=== PATIENT | male | born 1965 | race Caucasian/White ===

== ENCOUNTER 2017-07-14 12:18 | Observation (INO) | payer OTHER ==
[~2017-07-14] VITALS: Ht 185.4 cm; Wt 92.8 kg
[2017-07-14] VITALS (7 sets, daily range): BP systolic 114–143; BP diastolic 71–90; PULSE 50–66; RESP 13–18; O2SAT 96–98
[2017-07-14 13:06] LABS: BASOPHILS % (AUTO) 0.4 % (0-3); EOSINOPHILS % (AUTO) 0.9 % (0-5); MONOCYTES % (AUTO) 6.1 % (4-12); Mean Corpuscular Hemoglobin 29.3 pg (27.0-35.0); Mean Corpuscular Volume 81.8 fL (81-100); NEUTROPHILS % (AUTO) 48.5 % (40-74); Platelet Count 214 bil/L (150-400)
--- NOTE | 2017-07-14 13:27 | DRSVH ---
PROCEDURE: X-RAY CHEST ONE VIEW, PORTABLE ([id number]) INDICATIONS: chest pain TECHNIQUE: One view of the chest was acquired. COMPARISON: None. FINDINGS: Surgical changes and devices: None. Lungs and pleura: No pleural effusions or pneumothorax. Lungs are clear. Mediastinum: Mediastinal contours appear normal. Heart size is normal. Bones and chest wall: No suspicious bony lesions. Overlying soft tissues appear unremarkable. IMPRESSION: Negative chest. No acute cardiopulmonary process is evident. Dictated by: Thad Xiong M.D. on 07/14/2017 at 12:25 Approved by: Thad Xiong M.D. on 07/14/2017 at 12:26
[2017-07-14 13:32] LABS: TROPONIN T < 0.010 ug/L (0.0-0.011)
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
[2017-07-14 13:40] LABS: Magnesium 1.7 mg/dL (1.6-2.6)
[2017-07-14] MEDS ORDERED: Ondansetron 2 mg/mL 2 mL Inj IVPUSH ONE (13:50)
[2017-07-14] MEDS ORDERED: Ondansetron 2 mg/mL 2 mL Inj IVPUSH PRN (15:10)
--- NOTE | 2017-07-14 15:38 | DRSVH ---
PROCEDURE: CT ANG CHEST/ABD W/WO CONTRAST ([id number]) INDICATIONS: chest pain TECHNIQUE: Precontrast 5 mm thick sections acquired from the lung apices to the iliac crests. After the adminis tration of intravenous contrast, 3 mm thick sections again acquired from the lung apices to the iliac crests. 3-dimensional maximum intensity projection (MIP) oblique sagittal and coronal reformats wer e then acquired, and/or 3-dimensional volume rendering reformats. For radiation dose reduction, the following was used: automated exposure control. COMPARISON: None. FINDINGS: Image quality: Diagnostic. AORTA: The abdominal and thoracic aorta are normal in course and caliber without evidence of dissecti on, aneurysm, or occlusion. Mild atherosclerotic irregularity is noted involving the mid to lower ab dominal aorta. There is no intramural hematoma. No hematoma is evident within the mediastinum or re troperitoneum. The major arch vessels arising from the thoracic aorta are widely patent and otherwis e unremarkable. The major branch vessels arising from the upper abdominal aorta also are widely tirado nt and unremarkable. The imaged portions of the common iliac arteries are patent and within normal l imits. CHEST: Lungs and pleura: The lungs are well aerated with the exception of mild scarring versus atelectasis w ithin the posterior bilateral costophrenic angles. There is no focal consolidation, effusion, or pne umothorax. No lung masses or definite pulmonary nodules are present. Mediastinum: The heart is normal in size without a pericardial effusion. There is no mediastinal mas s or lymphadenopathy. No hilar adenopathy is evident. Mild prominence of the wall of the mid to dis branden esophagus is present. There is an associated very small hiatal hernia. The main pulmonary arter ial trunk is not enlarged. No large area emboli are evident. Bones and chest wall: No axillary adenopathy by size criteria. Thyroid gland is not enlarged. No s uspicious bony lesions. No vertebral body compression fractures. Age-appropriate degenerative montague es of the thoracic spine are present. ABDOMEN: Solid organs: The liver is normal in size. There is a small area of low attenuation involving the me dial segment of the left hepatic lobe, measuring approximately 7 mm in diameter (image 93, series 5). There may be additional subtle areas of low attenuation within the lateral segment of the left hepa tic lobe. Otherwise, the liver is unremarkable. The spleen is within normal limits. The pancreas i s also within normal limits. The adrenals and kidneys are unremarkable. There is no hydronephrosis. The proximal ureters are within normal limits. Peritoneum and bowel: There is a small hiatal hernia. Otherwise, the stomach, duodenum and remainder of the small bowel loops are nondilated. Slight prominence of the wall of multiple jejunal small amanuel wel loops is present without dilatation of the lumen of the bowel. Moderate residual stool is presen t within the imaged portions of the colon. No free fluid, loculated fluid collection or free air is identified. There is fatty infiltration involving the wall of the terminal ileum. Nodes and vessels: No retroperitoneal or mesenteric adenopathy by size criteria. Inferior vena cava is normal in morphology. Bones: No suspicious bony lesions. No vertebral body compression fractures. Age-appropriate degene rative changes of the lumbar spine are present. IMPRESSION: 1. Mild atherosclerosis of the abdominal aorta. There is no evidence of aneurysm, dissection, or oc clusion involving the thoracic or abdominal aorta. 2. Mild prominence of the wall of the mid to distal esophagus may represent mild reflux esophagitis given the small hiatal hernia. Please correlate clinically. 3. Mild prominence of the wall of multiple small bowel loops probably is exaggerated by incomplete d istention. However, given fatty infiltration of the wall of the terminal ileum, the possibility of a chronic inflammatory process such as Crohn's disease is difficult to exclude and clinical correlatio n is recommended. There is no bowel obstruction. Dictated by: Thad Xiong M.D. on 07/14/2017 at 14:24 Approved by: Thad Xiong M.D. on 07/14/2017 at 14:37
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
[2017-07-14] MEDS ORDERED: Pantoprazole 40 mg ER24 Tablet PO ONE (16:50)
[2017-07-14 17:54] LABS: TROPONIN T 0.01 ug/L (0.0-0.011)
--- NOTE | 2017-07-14 18:50 | DRSVH ---
PROCEDURE: US VEINOUS LEG DUPLEX UNILATERAL, LEFT INDICATIONS: left lower calf tenderness TECHNIQUE: Real-time imaging, as well as color and pulse Doppler interrogation, were performed of the lower extr emity deep veins from the inguinal ligament to the popliteal fossa. COMPARISON: None. FINDINGS: The deep veins are normally compressible, and free of intraluminal thrombus. Color and pu lse Doppler demonstrate normal phasic intraluminal flow. There is normal augmentation response to di stal compression maneuver. IMPRESSION: No deep vein thrombosis of the left lower extremity. Dictated by: Radha Young M.D. on 07/14/2017 at 18:48 Approved by: Radha Young M.D. on 07/14/2017 at 18:48
--- NOTE | 2017-07-14 19:18 | DRSVH ---
PROCEDURE: CT BRAIN WITHOUT CONTRAST ([id number]) INDICATIONS: lt arm drop TECHNIQUE: Noncontrast 4.5 mm thick angled axial sections acquired from the foramen magnum to the vertex, with c oronal reformats. COMPARISON: None. FINDINGS: Image quality: Excellent. CSF spaces: Basal cisterns are patent. No extra-axial fluid collections. Ventricles are normal in size and shape. Brain: No midline shift. No intracranial masses or hemorrhage. Dawson-white matter interface is norm al. Skull and face: Calvarium and visualized facial bones are intact, without suspicious lesions. Sinuses: Visualized sinuses and mastoids are clear. IMPRESSION: 1. No acute intracranial findings. Dictated by: Radha Young M.D. on 07/14/2017 at 19:11 Approved by: Radha Young M.D. on 07/14/2017 at 19:16
[2017-07-15 00:42] VITALS: BP 103/66; PULSE 72; RESP 18; O2SAT 98
[2017-07-15 05:26] VITALS: BP 107/68; PULSE 65; RESP 18; O2SAT 98
[2017-07-15] MEDS ORDERED: Pantoprazole 40 mg ER24 Tablet PO SCH ×2 (07:30→08:30)
[2017-07-15 09:36] VITALS: PULSE 60
[2017-07-15] MEDS ORDERED: PANT40TA3 PO (10:12)
[2017-07-15] MEDS ORDERED: ASPI-973 PO (10:12)
[2017-07-15 10:17] VITALS: BP 107/70; PULSE 58; RESP 16; O2SAT 94
--- NOTE | 2017-07-15 14:49 | DRSVH ---
[facility] [address] [place] [address] Echocardiogram Report Name: KRISH GUERRA Study Date: 07/15/2017 Height: 73 in Hospital Exam Location: [facility] Weight: 205 lb Gender: Male BSA: 2.2 m2 : 1965 Age: 52 yrs BP: 107/68 mmHg Reason For Study: Chest pain Ordering Physician: HOSPITALIST [facility] Performed By: Shirley Cat Referring Physician: Ilya Harry Interpretation Summary Normal sinus rhythm. HR is 55-65 bpm during exam. Normal LV size, wall thickness, wall motion and LV systolic function. EF is 50-55%. No significant valvular abnormalities. Normal chamber sizes. No prior study available for comparison. Procedure: A two-dimensional transthoracic echocardiogram with color flow and Doppler was performed. The study quality was technically adequate. There is no prior echocardiogram noted for this patient. The patient was in normal sinus rhythm during the exam. Left Ventricle: The left ventricle is normal in size, wall thickness, and systolic function without any focal wall motion abnormalities. The ejection fraction is estimated to be 50-55%. Assessment of diastolic parameters indicates normal left ventricular diastolic function and normal filling pressures. Right Ventricle: The right ventricle is normal in size, thickness and function. Atria: Both atria are normal in size. There is no Doppler evidence for an interatrial shunt. Mitral Valve: The mitral valve is normal in structure and function. There is no mitral regurgitation noted. Aortic Valve: The aortic valve is trileaflet. The aortic valve opens well. No aortic regurgitation is present. Tricuspid Valve: The tricuspid valve is normal in structure and function. There is a trace or physiologic amount of tricuspid regurgitation. The right ventricular systolic pressure is estimated at 26 mmHg assuming a right atrial pressure of 3 mm Hg. Pulmonic Valve: The pulmonic valve is not well seen, but is grossly normal. There is trace pulmonic regurgitation. Great Vessels: The aortic root is normal size. The ascending aorta is mildly enlarged. The pulmonary artery is not well visualized, but is probably normal size. The IVC is of normal diameter and collapses greater than 50% with a sniff. This suggests a low right atrial pressure of 3 mm Hg. Pericardium/ Pleura There is no pericardial effusion. There is no pleural effusion. MMode/2D Measurements & Calculations LVIDd: 5.4 cm LVIDs: 3.7 cm LA A2 area: 18.5 cm FS: 31.3 % LA A4 area: 20.1 cm EPSS: 0.62 cm LA length (vol): 5.6 cm IVSd: 1.0 cm LA vol: 56.4 ml LVPWd: 0.88 cm LA vol index: 25.9 ml/m IVC diam: 2.0 cm RA long axis: 5.0 cm LVOT diam: 2.3 cm RA area: 18.3 cm AoV Openin.1 cm RA vol: 56.8 ml Ao root diam: 3.6 cm RA : 26.1 ml/m2 asc Aorta Diam: 3.9 cm Ao Arch Diam (Prox Trans): 3.5 cm LV reeder. diameter/BSA (cm/m^2): 2.5 LV sys. diameter/BSA (cm/m^2): 1.7 RVD1 (basal): 4.0 cm RVD2 (mid): 2.9 cm TAPSE: 1.6 cm Doppler Measurements & Calculations Ao V2 max: 125.7 cm/sec MV E max daniel: 98.1 cm/sec Ao max P.3 mmHg MV A max daniel: 66.5 cm/sec Ao mean P.3 mmHg MV P1/2t: 69.7 msec LVOT Max Daniel: 83.3 cm/sec CONRAD(I,D): 3.0 cm sev ratio: 0.75 MV E/A: 1.5 TR max daniel: 238.1 cm/sec TR max P.7 mmHg PA V2 max: 67.8 cm/sec PA mean P.1 mmHg PA Accel Time: 0.14 sec MV dec time: 0.24 sec MV P1/2t max daniel: 98.2 cm/sec MVA(P1/2t): 3.2 cm2 Ao V2 mean: 84.2 cm/sec LV V1 max P.8 mmHg Ao V2 VTI: 27.4 cm LV V1 VTI: 20.5 cm CONRAD(V,D): 2.7 cm2 PA V2 mean: 49.3 cm/sec CONRAD indexed to BSA (cm^2/m^2): 1.4 Reading Physician:02:48 PM
[2017-07-15 15:00] VITALS: BP 132/80; PULSE 59; RESP 16; O2SAT 96
--- NOTE | 2017-07-15 15:42 | PCM.DIMED ---
Discharge Instructions Date of Service Jul 15, 2017 Dates of Hospitalization Jul 14, 2017 at 15:31 Discharge Diagnosis Discharge Diagnosis acute dx Chest pain, possible due to GI origin, erosive esophagitis, negative ischemic w/ u Chronic dx hx of GERD, h.pylori infection, recently treated colonic polyp Medication Instructions Additional med instructions Please consider taking Pantoprazole or Omeprazole 40mg daily for possible ongoing acid reflex Please taking aspirin 81mg daily with food, started for primary prevention of stroke and heart attack. Diet Discharge Diet: No restrictions, Low fat, Low Sodium, Heart Healthy Activity Discharge Activity: No restrictions Call your provider Call your provider for: Shortness of breath, Chest pain Patient Instructions Patient Instructions You were hospitalized with acute onset chest pain concerning for heart attack, you underwent serial blood test and stress test, echocardiogram, which didn't show any signs of heart attack. Given mild inflammatory changes in your esophagus, It could be related to your chest pain. Please follow up with your primary doctor in one week. Please maintain healthy life style as you do . Please consider seeing GI doctor for endoscopic evaluation given CT findings especially if you have persistent symptoms. Follow-up Provider: [facility] Follow-up with PCP in: 2 weeks Sylwia Carmona MD Jul 15, 2017 15:42
--- NOTE | 2017-07-15 15:45 | DRSVH ---
PROCEDURE: 1 DAY PHARMACOLOGICAL STRESS TEST Rest and pharmacological stress myocardial perfusion SPECT with gated imaging and ejection fraction RADIOPHARMACEUTICAL: 9.1 mCi Tc-99m tetrafosmin IV at rest and 24.2 mCi Tc-99m tetrafosmin IV at peak effect of pharmacological stress. A [id number]-[id number] was performed. INDICATIONS: 52 year-old man with chest pain. The patient reports syncopal episode or cardiac arrest event at age 19. He has family history of coronary artery disease. TECHNIQUE: Radiopharmaceutical was injected at peak stress test, and also at rest. SPECT images wer e obtained. SPECT myocardial perfusion images were displayed in short axis, horizontal long axis, an d vertical long axis views. Gated images were reviewed using [employer] software. COMPARISON: None. CARDIAC STRESS: A pharmacologic stress test was performed under the supervision of an attending staff, using an infus ion of [employer]. Hemodynamic data: There is normal blood pressure and heart rate response to pharmacologic stress. Symptoms: The patient denied anginal chest pain. Aminophylline: 100 mg IV EKG: No diagnostic changes of ischemia; no ectopy. FINDINGS: Raw data: There is good myocardial uptake of radiotracer. No significant motion artifacts. Left ventricle function: Gated images demonstrate normal left ventricular wall thickening. No segme ntal wall motion abnormalities. No transient ischemic dilation. Left ventricle end diastolic volume is normal. Left ventricle resting ejection fraction is 60%; normal range is above 45%. The calcula mallory stress ejection fraction is 48%, which is felt under estimating the actual LVEF. Myocardial perfusion: There is normal distribution of activity in the right and left ventricular alexand[place] cardium. No fixed or reversible perfusion defects. IMPRESSION: 1. Normal myocardial perfusion images. 2. Normal left ventricular volume and systolic function. 3. No chest pain or diagnostic EKG changes for ischemia. PQRS ATTESTATIONS: Measure 322 - Is this imaging test primarily performed on a low-risk surgery patient for preoperative evaluation within 30 days preceding their low-risk non-cardiac surgery? Low-risk surgery is defined as cardiac or myocardial infarction less than 1%, including (but not limited to) endoscopic pr ocedures, superficial procedures, cataract surgery, and excisional breast surgery: Answer: No Measure 323 - Is this imaging test performed primarily for the monitoring of an asymptomatic patient who had percutaneous coronary intervention on the visit date or within 2 years of the visit date? An swer: No Measure 324 - Is this imaging test performed primarily for the initial detection and risk assessment on an asymptomatic, low coronary heart disease patient? Low CHD risk definition = clinicians should consider the maximum number of available patient factors used to estimate risk based on [place] (A TP III criteria), typically age, gender, diabetes, smoking status, and use of blood pressure medicati on, and integrate age appropriate estimates for missing elements, such as LDL or standard blood press ure. Answer: No Dictated by: Jacob De Leon M.D. on 07/15/2017 at 15:38 Approved by: Jacob De Leon M.D. on 07/15/2017 at 15:43
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
== END 2017-07-15 16:40 | disposition home or self-care (01) ==
LOC: EDBD 12:18 → SED 12:18 → MPC 15:31
PROVIDERS: ADMIT Internal Medicine; ATTEND Internal Medicine
DX: R07.9 Chest pain, unspecified (principal); K21.9 Gastro-esophageal reflux disease without esophagitis; M79.605 Pain in left leg; Z79.82 Long term (current) use of aspirin
CPT/HCPCS: 36415; 70450; 71010; 71275; 74175; 78452; 80053; 80061; 83735; 84484; 85025; 93005; 93017; 93970; 96374; 96375; 99285; A9502; C8929; G0378; J0280; J1650; J2270; J2405; J2785; Q9967